=== PATIENT | female | born 1990 | race Hispanic/Latino ===

== ENCOUNTER 2024-09-09 10:49 | Day surgery (SDC) | payer OTHER ==
[2024-09-09] MEDS ORDERED: hydrALAZINE 20 MG/ML VIAL SLOW IVP PRN (11:22)
== END 2024-09-09 12:45 | disposition home or self-care (01) ==
LOC: CSHLD/OP 10:49
PROVIDERS: ATTEND Family Medicine
DX: O47.1 False labor at or after 37 completed weeks of gestation (principal); Z3A.39 39 weeks gestation of pregnancy; Z79.899 Other long term (current) drug therapy; Z98.890 Other specified postprocedural states
CPT/HCPCS: 99283

== ENCOUNTER 2024-09-12 19:00 | Inpatient (IN) | payer MEDICAID, OTHER ==
[2024-09-12] MEDS ORDERED: Acetaminophen 500 MG TAB PO PRN (22:55)
[2024-09-12] MEDS ORDERED: fentaNYL 50 mcg/mL 1 mL Vial SLOW IVP PRN (22:55)
[2024-09-12] MEDS ORDERED: HYDROcodone/Acetaminophen 5/325 mg Tablet PO PRN (22:55)
[2024-09-12] MEDS ORDERED: Carboprost 250 MCG/ML AMP IM PRN (22:55)
[2024-09-12] MEDS ORDERED: Ondansetron PF 4 MG/2 ML Vial IVP PRN (22:55)
[2024-09-12] MEDS ORDERED: hydrALAZINE 20 MG/ML VIAL SLOW IVP PRN (22:55)
[2024-09-12] MEDS ORDERED: Promethazine HCl 25 MG/ML VIAL IM PRN (22:55)
[2024-09-12] MEDS ORDERED: Tranexamic Acid 1,000 MG/10 ML VIAL IVP PRN (22:55)
[2024-09-12] MEDS ORDERED: Misoprostol 200 MCG TAB PR PRN (22:55)
[2024-09-12] MEDS ORDERED: Ibuprofen 800 MG TAB PO PRN (22:55)
[2024-09-12] MEDS ORDERED: Methylergonovine 0.2 MG/ML VIAL IM PRN (22:55)
[2024-09-12] MEDS ORDERED: Diphenoxylate HCl/Atropine Tablet PO PRN (22:55)
[2024-09-12] MEDS ORDERED: Lidocaine 1% (PF) 30 ML VIAL SC PRN (22:55)
[2024-09-12] MEDS ORDERED: Oxytocin 30 units/NS 500 ML 500 ML IV SCH ×2 (23:00→23:30)
[2024-09-12 23:23] VITALS: BMI 29.5
[2024-09-12 23:25] LABS: Hematocrit 40.8 % (34.9-44.5); Hemoglobin 13.1 g/dL (12.0-15.5); Mean Corpuscular HGB CONC 32.1 g/dL (32.0-36.0); Mean Corpuscular Hemoglobin 28.3 pg (27.0-33.0); Mean Corpuscular Volume 88.1 fL (81.6-98.3); Mean Platelet Volume 9.5 fL (7.4-10.4); Platelet Count 372 10x3/uL (150-450); RBC Distribution Width 15.5 % (11.5-14.5); Red Blood Cell (RBC) Count 4.63 10x6/uL (3.90-5.03); White Blood Cell (WBC) Count 11.5 10x3/uL (3.5-10.5)
[2024-09-12] MEDS ORDERED: Lactated Ringer's 1,000 ML IV SCH (23:30)
[2024-09-12 23:56] LABS: HBsAg Index 0.21 S/CO (0-0.99); Hep B Surf Ag - L&D Non-Reactive S/CO (NonReactive)
[2024-09-12 23:58] LABS: Syphilis Antibody Nonreactive (Nonreactive); Syphilis Antibody Index 0.08 S/CO (<1.00 Non-Reactive)
[2024-09-13] MEDS: Misoprostol 100 MCG TAB PO SCH (00:26)
[2024-09-13] MEDS: Oxytocin 30 units/NS 500 ML 500 ML IV SCH (10:40)
[2024-09-13] MEDS ORDERED: Bisacodyl 10 MG SUPP PR PRN (18:40)
[2024-09-13] MEDS ORDERED: diphenhydrAMINE 25 MG CAP PO PRN (18:40)
[2024-09-13] MEDS ORDERED: Boostrix 0.5 ML (Tdap) VIAL (>/=7 yrs of age) IM ONE (18:40)
[2024-09-13] MEDS ORDERED: Ondansetron PF 4 MG/2 ML Vial IVP PRN (18:40)
[2024-09-13] MEDS ORDERED: hydrALAZINE 20 MG/ML VIAL SLOW IVP PRN (18:40)
[2024-09-13] MEDS ORDERED: Milk Of Magnesia 30 ML UDCUP PO PRN (18:40)
[2024-09-13] MEDS ORDERED: Lanolin Ointment 7 GM TUBE TOP PRN (18:40)
[2024-09-13] MEDS: Ibuprofen 800 MG TAB PO SCH (20:21)
[2024-09-13] MEDS: Docusate 100 MG CAP PO SCH (20:21)
[2024-09-14] MEDS: Benzocaine-Menthol 82.5 ML CAN TOP PRN (06:29)
[2024-09-14] MEDS: Ferrous Sulfate 325 MG TAB PO SCH (07:23)
[2024-09-14] MEDS: Prenatal Vitamin 1 TAB PO SCH (08:48)
[2024-09-14] MEDS: HYDROcodone/Acetaminophen 5/325 mg Tablet PO PRN (14:19)
[2024-09-14 20:24] VITALS: BP 103/71; TEMP 97.9
== END 2024-09-14 20:07 | disposition home or self-care (01) | DRG 807 ==
LOC: CSHLD 20:19 → CSHPP 09-13 18:30
PROVIDERS: ADMIT Family Medicine; ATTEND Family Medicine
PROC: 10E0XZZ Delivery of Products of Conception, External Approach (ICD-10-PCS; principal; 2024-09-13)
PROC: 10907ZC Drainage of Amniotic Fluid, Therapeutic from Products of Conception, Via Natural or Artificial Opening (ICD-10-PCS; 2024-09-13)
DX: O99.824 Streptococcus B carrier state complicating childbirth (principal); Z37.0 Single live birth; Z3A.40 40 weeks gestation of pregnancy; Z79.82 Long term (current) use of aspirin; Z79.899 Other long term (current) drug therapy
CPT/HCPCS: 36415; 85027; 86780; 86850; 86900; 86901; 87340; J2590